=== PATIENT | male | born 1955 | race Caucasian/White ===

== ENCOUNTER → 2017-03-13 | Day surgery (SDC) | payer BC ==
[~2017-03-13] MED LIST: ACETAMINOPHEN 325 MG TAB ONE; BALANCED SALT SOLN OPHT IRRIG 15 ML BTL ONE; DEXAMETHASONE SOD PHOS 4 MG/ML VIAL ONE; EPINEPHrine HCL (1:1000) 1 MG/ML VIAL ONE; LACTATED RINGER'S 1000 ML INJ 1,000 ML ONE; MIDAZOLAM HCL 2 MG/2 ML VIAL ONE; MOXIFLOXACIN 0.5% OPHT SOLN 3 ML BTL ONE; ONDANSETRON HCL 4 MG/2 ML VIAL IV PUSH ONE; PHENYLEPHRINE HCL 10% OPTH SOLN 5 ML BTL ONE; PROPOFOL 200 MG/20 ML AMP IV ONE; SODIUM CHLORIDE 0.9% INJ 10 ML ONE; TETRACAINE 0.5% OPTH SOLN 4 ML BTL ONE; TOBRAMYCIN/DEXAMETHASONE OPTH OINT 3.5 GM TUBE ONE; TRIAMCINOLONE ACETONIDE 40 MG/ML VIAL ONE; ceFAZolin INJ 1,000 MG VIAL ONE; prednisoLONE ACETATE 1% OPHT SUSP 5 ML BTL ONE
--- NOTE | 2017-03-18 10:56 | TN ---
cc: ANDREW COLLAZO MD Corrected Copy: 03/20/17 DATE OF SURGERY: 03/13/2017 PREOPERATIVE DIAGNOSIS: Severe macula off retinal detachment, multiple retinal horseshoe tears, dislocated cataract, right eye. POSTOPERATIVE DIAGNOSIS: Severe macula off retinal detachment, multiple retinal horseshoe tears, dislocated cataract, right eye. PROCEDURE Pars plana vitrectomy, retinal detachment repair, endolaser, air-fluid exchange, insertion of 14% C3F8 gas, pars plana lensectomy, insertion of anterior chamber intraocular lens, 15.0 diopter power, right eye. COMPLICATIONS None BLOOD LOSS Less than [address] Farooq, General INDICATIONS FOR PROCEDURE This patient was known to have a dislocated nuclear sclerotic cataract of the right eye. The patient was awaiting traditional evaluation, possible surgical repair. In the meantime the patient developed a large retinal detachment with multiple peripheral retinal tears. The patient then elected for surgical correction. The patient elected to remove the dislocated cataract lens, repair retinal detachment and insert anterior chamber intraocular lens. The patient is aware of the possibilities of proliferative vitreoretinopathy with the severity of his condition. PROCEDURE NOTE After informed consent was obtained, the patient was brought to the operating room where general anesthesia was established. The right eye was prepped and draped in sterile fashion with Betadine in the conjunctival fornix. A three port pars plana vitrectomy was established with self-retaining infusion cannula. The core vitreous was removed and vitreous traction relieved. Care was taken to remove vitreous traction surrounding multiple retinal tears. The fragmentome and vitrector was used to remove the dislocated nucleus sclerotic cataract in mid vitreous cavity. PFO was then instilled and retina was reattached. Subretinal fluid was removed via peripheral retinal tears. Endolaser was applied surrounding multiple retinal tears at 360 degrees. Attention was now paid to anterior segment. A scleral tunnel was made with crescent blade and keratome. An anterior chamber intraocular lens of MTA 3UO, 15.0 diopter power was inserted into the anterior chamber. An inferior peripheral iridotomy was made with the vitrector. Scleral tunnel was closed with 7-0 Vicryl suture. Air-fluid exchange was then carried out and retina was noted to remain nicely attached. 14% C3F8 gas was instilled. Trocars removed. Sclerotomies closed. Subconjunctival injection of Ancef and dexamethasone were given. The eye was patched with Tobramycin ointment. The patient was brought to the recovery room in stable condition and continue follow up [facility] for his postoperative care. MD KARLA Navas/JANNETTE /6:58 PM /11:57 AM MTDStaci
== END | disposition home or self-care (01) ==
LOC: ESDC 13:22
PROVIDERS: ATTEND Ophthalmology
DX: H33.021 Retinal detachment with multiple breaks, right eye (principal); H25.11 Age-related nuclear cataract, right eye
CPT/HCPCS: 00142; 00145; 66985; 67108; J0171; J0690; J1100; J2250; J2405; J3010; J7120; V2630; J3301